=== PATIENT | female | born 1955 | race Caucasian/White ===

== ENCOUNTER 2023-01-30 12:23 | Day surgery (SDC) | payer MEDICARE ==
[2023-01-30] MEDS ORDERED: Sodium Bicarbonate 2.5 MEQ/5 ML VIAL ONE (13:41)
[2023-01-30] MEDS ORDERED: Lidocaine 1% PF 5 ML VIAL ONE (13:41)
[2023-01-30 14:37] VITALS: BP 96/65
== END 2023-01-30 14:10 | disposition home or self-care (01) ==
LOC: ULT 12:23
PROVIDERS: ATTEND Specialist
DX: E07.9 Disorder of thyroid, unspecified (principal); F41.8 Other specified anxiety disorders; Z79.899 Other long term (current) drug therapy; Z88.2 Allergy status to sulfonamides; Z90.89 Acquired absence of other organs
CPT/HCPCS: 10005; 88173

== ENCOUNTER 2024-04-18 07:46 | Outpatient (CLI) | payer MEDICARE | END 2024-04-18 07:47 | disposition home or self-care (01) | LOC: SCSMRI 07:46 | PROVIDERS: ATTEND Podiatrist | DX: S93.492D Sprain of other ligament of left ankle, subsequent encounter (principal); M79.672 Pain in left foot; R60.0 Localized edema; M19.072 Primary osteoarthritis, left ankle and foot; M20.12 Hallux valgus (acquired), left foot; M89.8X7 Other specified disorders of bone, ankle and foot ==